=== PATIENT | male | born 1955 | race Native Hawaiian/Other Pacific Islander ===

== ENCOUNTER → 2017-02-28 | Outpatient (CLI) | payer OTHER | END | disposition home or self-care (01) | LOC: RESP 10:16 | PROVIDERS: ATTEND Orthopaedic Surgery | DX: Z01.818 Encounter for other preprocedural examination (principal); R30.0 Dysuria ==

== ENCOUNTER 2017-03-11 05:48 | Outpatient (CLI) | payer OTHER ==
[2017-03-11] MEDS ORDERED: SODIUM CHL 0.9% 100ML MINI-BAG 100 ML IVPB ONE (06:08)
[2017-03-11] MEDS ORDERED: LACTATED RINGERS 1,000 ML ONE ×2 (06:08→06:32)
[2017-03-11] MEDS ORDERED: ceFAZolin SODIUM 1 GM VIAL ONE ×2 (06:09→06:52)
[2017-03-11] MEDS ORDERED: fentaNYL CITRATE INJ 50 MCG/ML AMP ONE (06:31)
[2017-03-11] MEDS ORDERED: ROCURONIUM BROMIDE 10 MG/ML VIAL ONE (06:31)
[2017-03-11] MEDS ORDERED: LIDOCAINE 2 % GEL 5 ML TUBE TOP ONE (06:31)
[2017-03-11] MEDS ORDERED: LIDOCAINE 1% W/ EPINEPHRINE 20 ML VIAL INJ ONE (06:52)
[2017-03-11] MEDS ORDERED: BUPIVACAINE 0.5% W/EPI 30 ML VIAL INJ ONE (06:52)
[2017-03-11] MEDS ORDERED: VANCOMYCIN HCL INJ 1,000 MG VIAL IVPB ONE (06:52)
[2017-03-11 08:13] VITALS: BP 143/84; TEMP 98.9; O2SAT 94
--- NOTE | 2017-03-17 08:51 | HP ---
CHIEF COMPLAINT: Right shoulder pain. HISTORY OF PRESENT ILLNESS: Mr. Bartholomew is a 61-year-old male with a history of pain in the right shoulder that has been going on for about a year. He has had no direct trauma related to the onset of this, but says it has been getting progressively worse over that timeframe. He has been putting it off because he thought it would get better on its own, but it continues to worsen. He has pain at night and pain with overhead activities. He has had an MRI which does show full thickness tear within the supraspinatus. PAST SURGICAL HISTORY: 1. Knee arthroscopy. MEDICATIONS: 1. Pantoprazole. 2. Aspirin. 3. Angely-C. ALLERGIES: NO KNOWN DRUG ALLERGIES. CODE STATUS: Full code. IMMUNIZATIONS: Up to date. SOCIAL HISTORY: The patient does not smoke or use any illicit drugs. He does drink on occasion. FAMILY HISTORY: None pertinent to today's complaint. REVIEW OF SYSTEMS: Negative except as indicated in the History of Present Illness. PHYSICAL EXAMINATION: VITAL SIGNS: Blood pressure 122/81. Pulse 65. Height 6'3". Weight 225. MENTAL STATUS: The patient is awake, alert, and is able to give a good history and participate in the physical. The patient is oriented to person, place and time. SKIN: Normal tone and turgor. MUSCULOSKELETAL: He is very tender both over the acromioclavicular joint and in the subacromial space. He does maintain full range of motion, but begins to have pain at 90 degrees of abduction. He has pain beginning at about 100 degrees of forward flexion. Internal rotation is to about T12. He has pain with cross-chest adduction. Strength is 5/5 throughout. He has a negative belly press maneuver. IMAGING: MRI was performed and shows tearing of the supraspinatus. There does also appear to be some infraspinatus and subscapularis tendinosis. ASSESSMENT: 1. Rotator cuff syndrome with tear of the supraspinatus. PLAN: The plan at this point is for rotator cuff repair, subacromial decompression and likely distal clavicle resection. We have talked about the risks, benefits and alternatives to that as well as the expected postoperative course. This will be dependent upon his findings at the time of surgery. After we discussed the risks, benefits, and alternatives to that and the patient has given informed consent for the above-mentioned procedure. #[id number]/ MTDD
== END 2017-03-11 09:40 | disposition home or self-care (01) ==
LOC: AMB 05:48 → EDSTATUS 09:45
PROVIDERS: ATTEND Orthopaedic Surgery
DX: Z01.818 Encounter for other preprocedural examination (principal)